=== PATIENT | male | born 2005 | race Caucasian/White ===

== ENCOUNTER 2024-03-01 18:09 | Emergency (ER) | payer MEDICAID ==
[2024-03-01 18:18] VITALS: BP 150/70; O2SAT 100
--- NOTE | 2024-03-01 18:20 | ED Physician Documentation ---
PD HPI ABD PAIN - Stated complaint Stated Complaint: ABD PX/HOUSER - Chief complaint Chief Complaint: Abd Pain - Additional information Additional information: 19-year-old male with no pertinent past medical history presents emergency department for abdominal pain, nausea vomiting diarrhea. Patient said this started suddenly last night after he ate [employer]. He said immediately after eating he noticed some midepigastric pain and started to have immediate diarrhea with vomiting. Today he has had no emesis mild diarrhea but reports midepigastric pain that he is having a hard time resolving. He is unsure if he had any fevers or chills. His girlfriend who is with him does not have any similar symptoms. PD PAST MEDICAL HISTORY - Past Medical History Past Medical History: No Cardiovascular: None Respiratory: None Neuro: None Endocrine/Autoimmune: None GI: None : None HEENT: None Psych: None Musculoskeletal: None Derm: None - Past Surgical History Past Surgical History: No - Present Medications Home Medications: Ambulatory Orders Medication Instructions Recorded Confirmed No Known Home Medications 03/01/24 03/01/24 - Allergies Allergies/Adverse Reactions: Allergies Allergy/AdvReac Type Severity Reaction Status Date / Time No Known Drug Allergies Allergy Verified 03/01/24 18:12 - Social History Does the pt smoke?: Yes Smoking Status: Current every day smoker Does the pt drink ETOH?: No Does the pt have substance abuse?: No - Immunizations Immunizations are current?: No - POLST Patient has POLST: No PD ED PE NORMAL - Vitals Vital signs reviewed: Yes - General General: Alert and oriented X 3, No acute distress, Well developed/nourished - Cardiac Cardiac: RRR - Respiratory Respiratory: No respiratory distress, Clear bilaterally - Abdomen Abdomen: Normal bowel sounds, Soft, Non distended, No organomegaly, Other (Mid epigastric tenderness) - Derm Derm: Normal color, Warm and dry, No rash Results - Vitals Vitals: Vital Signs - 24 hr 03/01/24 18:13 Temperature 36.8 C Heart Rate 100 Respiratory 16 Rate Blood Pressure 150/70 H O2 Saturation 100 Oxygen O2 Source Room air - Labs Labs: Laboratory Tests 03/01/24 03/01/24 03/01/24 18:19 18:19 18:28 WBC 6.7 RBC 4.87 Hgb 14.7 Hct 44.7 MCV 91.8 MCH 30.2 MCHC 32.9 RDW 11.9 L Plt Count 352 MPV 9.4 Neut # (Auto) 3.6 Lymph # (Auto) 2.3 [place] # (Auto) 0.6 Eos # (Auto) 0.0 Baso # (Auto) 0.0 Absolute Nucleated RBC 0.00 Nucleated RBC % 0.0 Sodium 138 Potassium 3.5 Chloride 103 Carbon Dioxide 27 Anion Gap 8.0 BUN 13 Creatinine 1.0 Estimated GFR (MDRD) 95 Glucose 99 Calcium 10.2 Total Bilirubin 0.7 AST 17 ALT 25 Alkaline Phosphatase 106 Total Protein 8.0 Albumin 4.9 Globulin 3.1 Albumin/Globulin Ratio 1.6 Lipase 11 Urine Color Urine Clarity Urine pH Ur Specific [place] Urine Protein Urine Glucose (UA) Urine Ketones Urine Occult Blood Urine Nitrite Urine Bilirubin Urine Urobilinogen Ur Leukocyte Esterase Ur Microscopic Review Urine Culture Comments Nasal Adenovirus (PCR) NOT DETECTED Nasal B. parapertussis DNA (PCR) NOT DETECTED Nasal Coronavir 229E PCR NOT DETECTED Nasal Coronavir HKU1 PCR NOT DETECTED Nasal Coronavir NL63 PCR NOT DETECTED Nasal Coronavir OC43 PCR NOT DETECTED Nasal Enterovir/Rhinovir PCR NOT DETECTED Nasal Influenza B PCR NOT DETECTED Nasal Influenza A PCR NOT DETECTED Nasal Parainfluen 1 PCR NOT DETECTED Nasal Parainfluen 2 PCR NOT DETECTED Nasal Parainfluen 3 PCR NOT DETECTED Nasal Parainfluen 4 PCR NOT DETECTED Nasal RSV (PCR) NOT DETECTED Nasal B.pertussis DNA PCR NOT DETECTED Nasal C.pneumoniae (PCR) NOT DETECTED Shai Human Metapneumo PCR NOT DETECTED Nasal M.pneumoniae (PCR) NOT DETECTED Nasal SARS-CoV-2 (PCR) NOT DETECTED 03/01/24 18:28 WBC RBC Hgb Hct MCV MCH MCHC RDW Plt Count MPV Neut # (Auto) Lymph # (Auto) [place] # (Auto) Eos # (Auto) Baso # (Auto) Absolute Nucleated RBC Nucleated RBC % Sodium Potassium Chloride Carbon Dioxide Anion Gap BUN Creatinine Estimated GFR (MDRD) Glucose Calcium Total Bilirubin AST ALT Alkaline Phosphatase Total Protein Albumin Globulin Albumin/Globulin Ratio Lipase Urine Color YELLOW Urine Clarity CLEAR Urine pH 6.5 Ur Specific [place] 1.020 Urine Protein NEGATIVE Urine Glucose (UA) NEGATIVE Urine Ketones NEGATIVE Urine Occult Blood NEGATIVE Urine Nitrite NEGATIVE Urine Bilirubin SMALL H Urine Urobilinogen 1 (NORMAL) Ur Leukocyte Esterase NEGATIVE Ur Microscopic Review NOT INDICATED Urine Culture Comments NOT INDICATED Nasal Adenovirus (PCR) Nasal B. parapertussis DNA (PCR) Nasal Coronavir 229E PCR Nasal Coronavir HKU1 PCR Nasal Coronavir NL63 PCR Nasal Coronavir OC43 PCR Nasal Enterovir/Rhinovir PCR Nasal Influenza B PCR Nasal Influenza A PCR Nasal Parainfluen 1 PCR Nasal Parainfluen 2 PCR Nasal Parainfluen 3 PCR Nasal Parainfluen 4 PCR Nasal RSV (PCR) Nasal B.pertussis DNA PCR Nasal C.pneumoniae (PCR) Shai Human Metapneumo PCR Nasal M.pneumoniae (PCR) Nasal SARS-CoV-2 (PCR) PD Medical Decision Making - ED course ED course: This patient presents with nausea, vomiting & diarrhea. Differential diagnosis includes possible acute gastroenteritis. Abdominal exam without peritoneal signs. Currently euvolemic without evidence of dehydration. Doubt invasive bacteria causing diarrhea such as C diff (no recent antibiotics, does not work in healthcare), shiga toxin (non bloody). No recent travel. Patient is not immunocompromised. Diarrhea is non bloody so less likely inflammatory bowel disease. No evidence of surgical abdomen or other acute medical emergency including bowel obstruction, viscus perforation, vascular catastrophe, atypical appendicitis, acute cholecystitis, or diverticulitis at this time. Presentation not consistent with other acute, emergent causes of vomiting / diarrhea at this time. No indication for abdominal imaging,Shared decision-making was utilized. Patient reports that his abdominal pain has significantly improved after GI cocktail, IV fluids, IV Zofran. Patient able to tolerate p.o.'s. Strict ER return precautions given all questions answered and safe for discharge Departure - Departure Disposition: 01 Home, Self Care Clinical Impression: Gastroenteritis, Nausea vomiting and diarrhea Condition: Good Instructions: ED Diet [place] Comments: Thank you for trusting us with your care. We have completed labs which do not reveal any acute abnormalities. We were going to do an ultrasound but we both agree that this is not warranted at this time given that your symptoms have now almost entirely resolved. You can buy Maalox [id number] I would suggest taking this as directed on the bottle for the next few days to help with your GI upset. Eat a very bland diet going home and ease back into eating and drinking. Most importantly stay well-hydrated. Come back to the ER if symptoms get any worse or if you start to develop any fevers or chills. Please follow-up with your primary care provider as needed in regards to today's visit. Wishing you a speedy recovery. Forms: PCP List Discharge Date/Time: 03/01/24 19:45
[2024-03-01 18:24] LABS: BASOPHILS % (AUTO) 0.6 %; EOSINOPHILS % (AUTO) 0.4 %; HCT - HEMATOCRIT 44.7 % (42.0-52.0); HGB - HEMOGLOBIN 14.7 g/dL (14.0-18.0); LYMPHOCYTES # (AUTO) 2.3 10^3/uL (1.5-3.5); LYMPHOCYTES % (AUTO) 34.6 %; MEAN CORPUSCULAR HEMOGLOBIN 30.2 pg (27.0-31.0); MEAN CORPUSCULAR HGB CONC 32.9 g/dL (32.0-36.0); MEAN CORPUSCULAR VOLUME 91.8 fL (80.0-94.0); MEAN PLATELET VOLUME 9.4 fL (7.4-11.4); MONOCYTES # (AUTO) 0.6 10^3/uL (0.0-1.0); MONOCYTES % (AUTO) 9.4 %; NEUTROPHILS # (AUTO) 3.6 10^3/uL (1.5-6.6); NEUTROPHILS % (AUTO) 54.7 %; PLT - PLATELET COUNT 352 10^3/uL (130-450); RED BLOOD COUNT 4.87 10^6/uL (4.70-6.10); RED CELL DISTRIBUTION WIDTH 11.9 % (12.0-15.0); WHITE BLOOD COUNT 6.7 x10^3/uL (4.8-10.8)
[2024-03-01] MEDS: ONDANSETRON 4 MG/2 ML VIAL IVP STA (18:40)
[2024-03-01] MEDS: SODIUM CHLORIDE 0.9% 1,000 ML IV ONE (18:40)
[2024-03-01 18:41] LABS: ALBUMIN 4.9 g/dL (3.2-5.5); ALBUMIN/GLOBULIN RATIO 1.6 (1.0-2.2); BILIRUBIN,TOTAL 0.7 mg/dL (0.2-1.0); CALCIUM 10.2 mg/dL (8.5-10.3); POTASSIUM 3.5 mmol/L (3.5-4.5)
[2024-03-01] MEDS: GI COCKTAIL 120 ML BOTTLE PO STA (18:41)
[2024-03-01 18:47] LABS: BILIRUBIN,URINE SMALL (NEGATIVE); GLUCOSE, URINE (UA) NEGATIVE (NEGATIVE); KETONES,URINE (UA) NEGATIVE (NEGATIVE); LEUKOCYTE ESTERASE, URINE NEGATIVE (NEGATIVE); NITRITE,URINE NEGATIVE (NEGATIVE); OCCULT BLOOD,URINE NEGATIVE (NEGATIVE); PH,URINE 6.5 PH (5.0-7.5); PROTEIN,URINE NEGATIVE (NEGATIVE); UROBILINOGEN,URINE 1 (NORMAL) E.U./dL (NORMAL)
[2024-03-01 18:50] LABS: CLARITY,URINE CLEAR (CLEAR)
[2024-03-01] MEDS: diphenhydrAMINE ELIXIR 25 MG/10 ML UDC PO STA (19:01)
[2024-03-01] MEDS: MAG HYDROX/AL HYDROX/SIMETH 30 ML UDC PO STA (19:01)
[2024-03-01] MEDS: LIDOCAINE VISCOUS 2% 15 ML ORAL SYRINGE MM STA (19:03)
[2024-03-01 19:30] LABS: B. PARAPERTUSSIS- RESP PCR PAN NOT DETECTED; B. PERTUSSIS- RESP PCR PANEL NOT DETECTED; C. PNEUMONIAE- RESP PCR PANEL NOT DETECTED; CORONAVIRUS 229E-RESP PCR NOT DETECTED; CORONAVIRUS HKU1-RESP PCR NOT DETECTED; CORONAVIRUS NL63-RESP PCR NOT DETECTED; CORONAVIRUS OC43-RESP PCR NOT DETECTED; HUMAN METAPNEUMOVIRUS NOT DETECTED; INFLUENZA A- RESP PCR PANEL NOT DETECTED; INFLUENZA B - RESP PCR PANEL NOT DETECTED; M. PNEUMONIAE- RESP PCR PANEL NOT DETECTED; PARAINFLUENZA VIRUS 1 NOT DETECTED; PARAINFLUENZA VIRUS 2 NOT DETECTED; PARAINFLUENZA VIRUS 3 NOT DETECTED; PARAINFLUENZA VIRUS 4 NOT DETECTED; RHINOVIRUS/ENTEROVIRUS NOT DETECTED; RSV- RESP PCR PANEL NOT DETECTED; SARS-CoV-2 -RESP PCR PANEL NOT DETECTED
[2024-03-01] MEDS ORDERED: ONDANSETRON ODT 4 MG Prepack 2 TL PRN (19:37)
== END 2024-03-01 19:45 | disposition home or self-care (01) ==
LOC: ED 18:09
DX: K52.9 Noninfective gastroenteritis and colitis, unspecified (principal); F17.200 Nicotine dependence, unspecified, uncomplicated; Z11.52 Encounter for screening for COVID-19
CPT/HCPCS: 36415; 80053; 81003; 83690; 85025; 87633; 96374; 99283; A9270; 81001; 87086

== ENCOUNTER 2024-03-03 10:14 | Emergency (ER) | payer MEDICAID ==
[2024-03-03 10:58] LABS: BASOPHILS % (AUTO) 0.7 %; EOSINOPHILS % (AUTO) 0.4 %; HCT - HEMATOCRIT 44.6 % (42.0-52.0); HGB - HEMOGLOBIN 14.4 g/dL (14.0-18.0); LYMPHOCYTES # (AUTO) 1.3 10^3/uL (1.5-3.5); LYMPHOCYTES % (AUTO) 23.7 %; MEAN CORPUSCULAR HEMOGLOBIN 30.3 pg (27.0-31.0); MEAN CORPUSCULAR HGB CONC 32.3 g/dL (32.0-36.0); MEAN CORPUSCULAR VOLUME 93.7 fL (80.0-94.0); MEAN PLATELET VOLUME 9.6 fL (7.4-11.4); MONOCYTES # (AUTO) 0.4 10^3/uL (0.0-1.0); MONOCYTES % (AUTO) 6.7 %; NEUTROPHILS # (AUTO) 3.6 10^3/uL (1.5-6.6); NEUTROPHILS % (AUTO) 68.1 %; PLT - PLATELET COUNT 331 10^3/uL (130-450); RED BLOOD COUNT 4.76 10^6/uL (4.70-6.10); RED CELL DISTRIBUTION WIDTH 11.7 % (12.0-15.0); WHITE BLOOD COUNT 5.4 x10^3/uL (4.8-10.8)
[2024-03-03 11:13] LABS: ALBUMIN 4.9 g/dL (3.2-5.5); ALBUMIN/GLOBULIN RATIO 2.1 (1.0-2.2); ALKALINE PHOSPHATASE 91 IU/L (42-121); ALT ALANINE AMINOTRANSFERASE 19 IU/L (10-60); AST ASPARTATE AMINOTRANSFERASE 15 IU/L (10-42); BILIRUBIN,TOTAL 0.7 mg/dL (0.2-1.0); BUN - BLOOD UREA NITROGEN 13 mg/dL (6-20); CALCIUM 9.8 mg/dL (8.5-10.3); CARBON DIOXIDE - CO2 25 mmol/L (21-32); CHLORIDE 101 mmol/L (101-111); GFR - MDRD 95 (>89); GLUCOSE 82 mg/dL (74-104); POTASSIUM 4.1 mmol/L (3.5-4.5); SODIUM 136 mmol/L (135-145); TOTAL PROTEIN 7.2 g/dL (6.4-8.9)
[2024-03-03 11:21] LABS: LIPASE < 10 U/L (11-82)
[2024-03-03] MEDS ORDERED: iohexoL-300 100 ML VIAL ONE (11:51)
--- NOTE | 2024-03-03 11:51 | ED Physician Documentation ---
PD HPI ABD PAIN - Stated complaint Stated Complaint: NAUSEA,STOMACH PX - Chief complaint Chief Complaint: Abd Pain - History obtained from History obtained from: Patient - Additional information Additional information: Previously healthy 19-year-old gentleman developed abdominal pain, vomiting, and diarrhea after eating some [employer] night,. His girlfriend also ate [employer] but did not get sick. He was seen the next morning by my partner with normal labs and it was felt to be probably a transient process and was treated, but continues to have vomiting, diarrhea, and upper abdominal pain. He denies fevers, or blood from the vomit or in the diarrhea. No sick contacts or recent travel. PD PAST MEDICAL HISTORY - Past Medical History Past Medical History: No Cardiovascular: None Respiratory: None Neuro: None Endocrine/Autoimmune: None GI: None : None HEENT: None Psych: None Musculoskeletal: None Derm: None - Past Surgical History Past Surgical History: No - Present Medications Home Medications: Ambulatory Orders Medication Instructions Recorded Confirmed Dicyclomine [Bentyl] 1 - 2 tab PO QID PRN #20 cap 03/03/24 Ondansetron Odt [Zofran] 4 mg TL Q6H PRN #10 tablet 03/03/24 - Allergies Allergies/Adverse Reactions: Allergies Allergy/AdvReac Type Severity Reaction Status Date / Time No Known Drug Allergies Allergy Verified 03/03/24 10:34 - Social History Does the pt smoke?: Yes Smoking Status: Current every day smoker Does the pt drink ETOH?: No Does the pt have substance abuse?: No - Immunizations Immunizations are current?: No - POLST Patient has POLST: No PD ED PE NORMAL - Vitals Vital signs reviewed: Yes - General General: Alert and oriented X 3, No acute distress - Cardiac Cardiac: RRR, No murmur - Respiratory Respiratory: No respiratory distress, Clear bilaterally - Abdomen Abdomen: Other (Mild tenderness on the entirety of the right side and the epigastrium. No surgical signs.) - Neuro Neuro: Alert and oriented X 3, Normal speech - Psych Psych: Normal mood, Normal affect Results - Vitals Vitals: Vital Signs - 24 hr 03/03/24 10:32 Temperature 36.2 C L Heart Rate 82 Respiratory 20 Rate Blood Pressure 123/69 O2 Saturation 99 Oxygen O2 Source Room air - Labs Labs: Laboratory Tests 03/03/24 03/03/24 10:55 10:55 WBC 5.4 RBC 4.76 Hgb 14.4 Hct 44.6 MCV 93.7 MCH 30.3 MCHC 32.3 RDW 11.7 L Plt Count 331 MPV 9.6 Neut # (Auto) 3.6 Lymph # (Auto) 1.3 L [place] # (Auto) 0.4 Eos # (Auto) 0.0 Baso # (Auto) 0.0 Absolute Nucleated RBC 0.00 Nucleated RBC % 0.0 Sodium 136 Potassium 4.1 Chloride 101 Carbon Dioxide 25 Anion Gap 10.0 BUN 13 Creatinine 1.0 Estimated GFR (MDRD) 95 Glucose 82 Calcium 9.8 Total Bilirubin 0.7 AST 15 ALT 19 Alkaline Phosphatase 91 Total Protein 7.2 Albumin 4.9 Globulin 2.3 Albumin/Globulin Ratio 2.1 Lipase < 10 L - Rads (name of study) CT of the abdomen pelvis demonstrates a possible colitis, otherwise unremarkable. Relevant Findings:: Final report received, EMP independent interpretation of test PD Medical Decision Making - ED course ED course: 19-year-old gentleman with a syndrome that sounds like gastroenteritis, that said the time course is stretching a little long for that. So would have to worry about other intra-abdominal emergencies especially given that he is mildly tender. CBC and CMP unremarkable. Subsequently a CT was done showing potential colitis versus underdistention. Colitis would go along with his symptoms. Seems like he is just having a little longer than average gastroenteritis syndrome. Feeling better after medications here. Departure - Departure Disposition: 01 Home, Self Care Clinical Impression: Gastroenteritis Condition: Good Record reviewed to determine appropriate education?: Yes Assessment: Gastroenteritis Instructions: ED Gastroenteritis Viral Prescriptions: Dicyclomine [Bentyl] 1 - 2 tab PO QID PRN #20 cap PRN Reason: Abdominal Pain Ondansetron Odt [Zofran] 4 mg TL Q6H PRN #10 tablet PRN Reason: Nausea / Vomiting Comments: I suspect your symptoms will be go away over the next 24 to 36 hours. If you are still ill Sunday, I would like to see you again for recheck. Sooner if worse or if new worrisome symptoms develop. I sent your prescriptions electronically to the [facility] in [place]. Forms: PCP List, Activity restrictions
[2024-03-03] MEDS: KETOROLAC 15 MG/ML VIAL IVP STA (11:59)
[2024-03-03] MEDS: ONDANSETRON 4 MG/2 ML VIAL IVP STA (11:59)
[2024-03-03] MEDS: SODIUM CHLORIDE 0.9% 1,000 ML IV STA (12:02)
--- NOTE | 2024-03-03 12:35 | CT Report ---
PROCEDURE: Abdomen/Pelvis W INDICATIONS: abd pain, nvd, iv only CONTRAST: Omnipaque 300 100ml TECHNIQUE: After the administration of intravenous contrast, a CT scan of the abdomen and pelvis was performed. Images were recorded and evaluated at appropriate window settings. Reformats: coronal and sagittal. F or radiation dose reduction, the following was used: automated exposure control, adjustment of mA and /or kV according to patient size. COMPARISON: None. FINDINGS: Image quality: Diagnostic. Lower chest: Unremarkable. Liver: No solid mass. Gallbladder and biliary tree: Spleen: No splenomegaly. Pancreas: No pancreatic ductal dilation. Adrenals: No adrenal nodule. Kidneys and ureters: No hydronephrosis. No renal cystic lesion which requires follow up. No solid mas s. Stomach, bowel and peritoneum: No bowel obstruction. There is a thickened appearance within the desce nding and sigmoid colon. No pathologic free fluid. Lymph nodes: No central or retroperitoneal adenopathy. Vessels: No infrarenal aortic aneurysm. PELVIS Reproductive organs: Unremarkable. Bladder: No abnormal wall thickening, accounting for underdistention. Pelvic lymph nodes: No pelvic adenopathy by size criteria. Bones: No aggressive osseous abnormality. Other: No significant ventral or inguinal hernia. IMPRESSION: Thickened appearance of the descending and sigmoid colon most suggestive of incomplete distention. Ho wever, a very early developing colitis cannot be definitively excluded and recommend correlation lukasz ent's symptoms. Reviewed by: Josie Valdez MD on 03/03/2024 12:33 PM PDT Approved by: Josie Valdez MD on 03/03/2024 12:33 PM PDT Station ID: [id number]
[2024-03-03 12:59] VITALS: BP 122/63; O2SAT 100
[2024-03-03] MEDS: iohexoL-300 100 ML VIAL IVP ONE (14:52)
== END 2024-03-03 13:00 | disposition home or self-care (01) ==
LOC: ED 10:14
DX: K52.9 Noninfective gastroenteritis and colitis, unspecified (principal); F17.200 Nicotine dependence, unspecified, uncomplicated
CPT/HCPCS: 36415; 74177; 80053; 83690; 85025; 96374; 99284; Q9967